=== PATIENT | female | born 1955 | race Caucasian/White ===

== ENCOUNTER 2016-04-24 09:12 | Emergency (ER) | payer OTHER ==
[~2016-04-24] VITALS: Ht 167.6 cm; Wt 63.5 kg
[~2016-04-24 09:12] MED LIST: ABIL5TAB6 PO; AMLO5 PO; DOCU1CAP39 PO; DULO20 PO; HYDR2.5%T PR; LEVO50TA4 PO; OMEP10CA37 PO
[2016-04-24 09:23] VITALS: BP 143/96; PULSE 123; RESP 18; TEMP 99.4; O2SAT 99
[2016-04-24 09:40] VITALS: RESP 16; O2SAT 99
[2016-04-24] MEDS ORDERED: SODIUM CHLOR 0.9% 1000 ML INJ 1,000 ML IV ONE (09:45)
[2016-04-24] MEDS ORDERED: SODIUM CHLORIDE 0.9% FLUSH 5 ML FLUSH IVF PRN (09:45)
[2016-04-24] MEDS ORDERED: LEVO125T4 PO (09:51)
[2016-04-24] MEDS ORDERED: AMLO5TAB2 PO (09:51)
[2016-04-24] MEDS ORDERED: DULO20 PO (09:51)
[2016-04-24] MEDS ORDERED: PRIL20CA9 PO (09:51)
[2016-04-24] MEDS ORDERED: ABIL5TAB6 PO (09:51)
--- NOTE | 2016-04-24 09:59 | RADHPO ---
EXAM DATE/TIME: 04/24/2016 09:46 [place] COMPARISON: No previous studies available for comparison. INDICATIONS : High heart rate. MEDICAL HISTORY : Hypertension. SURGICAL HISTORY : None. ENCOUNTER: Initial ACUITY: 1 day PAIN SCORE: 0/10 LOCATION: Bilateral chest FINDINGS: A single view of the chest demonstrates the lungs to be symmetrically aerated without evidence of mas s, infiltrate or effusion. The cardiomediastinal contours are unremarkable. Osseous structures are intact. CONCLUSION: No acute disease. Cody Jean MD on April 24, 2016 at 9:54 Board Certified Radiologist. This report was verified electronically.
[2016-04-24 10:21] LABS: AUTOMATED NEUTROPHIL # 3.5 TH/MM3 (1.8-7.7); BASOPHIL % 0.4 % (0.0-2.0); EOSINOPHIL % 0.8 % (0.0-4.0); HEMATOCRIT 43.1 % (35.0-46.0); HEMO FLAGS DIFF FINAL; LYMPH % 11.2 % (9.0-44.0); LYMPHOCYTE # 0.5 TH/MM3 (1.0-4.8); MEAN CELL VOLUME 93.1 FL (80.0-100.0); MEAN CORPUSCULAR HEMOGLOBIN 31.4 PG (27.0-34.0); MEAN CORPUSCULAR HGB CONC 33.7 % (32.0-36.0); MONO % 12.3 % (0.0-8.0); NEUT % 75.3 % (16.0-70.0); PLATELET COUNT 253 TH/MM3 (150-450); RED BLOOD COUNT 4.62 MIL/MM3 (4.00-5.30); RED CELL DISTRIBUTION WIDTH 11.8 % (11.6-17.2); WHITE BLOOD COUNT 4.6 TH/MM3 (4.0-11.0)
[2016-04-24 10:30] LABS: CHLORIDE 99 MEQ/L (98-107); POTASSIUM 3.9 MEQ/L (3.5-5.1); SODIUM (NA) 139 MEQ/L (136-145)
--- NOTE | 2016-04-24 10:31 | PD ---
HPI Chief Complaint: GI Complaint Time Seen by Provider: 09:30 Travel History International Travel<30 days: No Contact w/Intl Traveler<30days: No Traveled to known affect area: No History of Present Illness HPI Patient 60-year-old female presents emergency department for evaluation of tachycardia. Patient states she's been having cough and congestive symptoms she started azithromycin pack and is also been having some diarrhea. She went to an urgent care facility today found her heart rate was elevated and the recommended that she come to the emergency department for IV rehydration. Patient does have plans to go on a vacation in the next week and she was told urgent care that if she didn't come over to get hydrated she may not end up going on a cruise. She denies any fever bowel pain chest pain shortness breath. Her URI symptoms consistent with dry cough with runny nose. States the diarrhea is nonbloody and non-melanous. Patient also states that she's recently had her thyroid medication adjusted (a few days ago). PFSH Past Medical History Depression: Yes Cardiovascular Problems: Yes (HTN) GERD: Yes Hypertension: Yes Thyroid Disease: Yes (hypo) ?: Not Social History Alcohol Use: Yes (3 beers daily; 3 beers 07/31/15) Tobacco Use: No (as teenager) Substance Use: No Allergies-Medications (Allergen,Severity, Reaction): Coded Allergies: No Known Allergies (Unverified , 04/24/16) Reported Meds & Prescriptions Reported Meds & Active Scripts Active Reported Levothyroxine (Levothyroxine Sodium) 125 Mcg Tab 0.5 Tab PO DAILY Cymbalta DR (Duloxetine HCl) 20 Mg Capdr Unknown Dose PO DAILY Abilify (Aripiprazole) 5 Mg Tab 5 Mg PO DAILY Amlodipine (Amlodipine Besylate) 5 Mg Tab 5 Mg PO DAILY Prilosec (Omeprazole) 20 Mg Cap 20 Mg PO DAILY Review of Systems Except as stated in HPI: all other systems reviewed are Neg Physical Exam Narrative GENERAL: WD, WN in nad. Tanned. SKIN: Warm and dry. HEAD: Atraumatic. Normocephalic. EYES: Pupils equal and round. No scleral icterus. No injection or drainage. ENT: No nasal bleeding or discharge. Mucous membranes pink and dry. NECK: Trachea midline. No JVD. CARDIOVASCULAR: Tachycardic with regular rhythm. 2+ bilaterally equal pulses in all 4 ext. RESPIRATORY: No accessory muscle use. Clear to auscultation. Breath sounds equal bilaterally. GASTROINTESTINAL: Abdomen soft, non-tender, nondistended. Hepatic and splenic margins not palpable. MUSCULOSKELETAL: Extremities without clubbing, cyanosis, or edema. No obvious deformities. NEUROLOGICAL: Awake and alert. No obvious cranial nerve deficits. Motor grossly within normal limits. Five out of 5 muscle strength in the arms and legs. Normal speech. PSYCHIATRIC: Appropriate mood and affect; insight and judgment normal. Data Data Last Documented VS Vital Signs Date Time Temp Pulse Resp B/P Pulse Ox O2 Delivery O2 Flow Rate FiO2 04/24/16 11:27 99 16 147/88 97 Room Air 04/24/16 09:23 99.4 Orders Electrocardiogram (04/24/16 09:36) Basic Metabolic Panel (Bmp) (04/24/16 09:36) Ckmb (Isoenzyme) Profile (04/24/16 09:36) Complete Blood Count With Diff (04/24/16 09:36) Magnesium (Mg) (04/24/16 09:36) Prothrombin Time / Inr (Pt) (04/24/16 09:36) Act Partial Throm Time (Ptt) (04/24/16 09:36) Troponin I (04/24/16 09:36) Chest, Single Ap (04/24/16 09:36) Ecg Monitoring (04/24/16 09:36) Bilateral Bp Monitoring (04/24/16 09:36) Iv Access Insert/Monitor (04/24/16 09:36) Oximetry (04/24/16 09:36) Oxygen Administration (04/24/16 09:36) Sodium Chloride 0.9% Flush (Ns Flush) (04/24/16 09:45) Sodium Chlor 0.9% 1000 Ml Inj (Ns 1000 M (04/24/16 09:45) Thyroid Stimulating Hormone (04/24/16 09:58) Free T3 (04/24/16 09:58) Free Thyroxine (T4) (04/24/16 09:58) Labs Laboratory Tests Test 04/24/16 10:05 White Blood Count 4.6 TH/MM3 Red Blood Count 4.62 MIL/MM3 Hemoglobin 14.5 GM/DL Hematocrit 43.1 % Mean Corpuscular Volume 93.1 FL Mean Corpuscular Hemoglobin 31.4 PG Mean Corpuscular Hemoglobin 33.7 % Concent Red Cell Distribution Width 11.8 % Platelet Count 253 TH/MM3 Mean Platelet Volume 8.2 FL Neutrophils (%) (Auto) 75.3 % Lymphocytes (%) (Auto) 11.2 % Monocytes (%) (Auto) 12.3 % Eosinophils (%) (Auto) 0.8 % Basophils (%) (Auto) 0.4 % Neutrophils # (Auto) 3.5 TH/MM3 Lymphocytes # (Auto) 0.5 TH/MM3 Monocytes # (Auto) 0.6 TH/MM3 Eosinophils # (Auto) 0.0 TH/MM3 Basophils # (Auto) 0.0 TH/MM3 CBC Comment DIFF FINAL Differential Comment Prothrombin Time 10.2 SEC Prothromb Time International 0.9 RATIO Ratio Activated Partial 25.3 SEC Thromboplast Time Sodium Level 139 MEQ/L Potassium Level 3.9 MEQ/L Chloride Level 99 MEQ/L Carbon Dioxide Level 30.3 MEQ/L Anion Gap 10 MEQ/L Blood Urea Nitrogen 10 MG/DL Creatinine 0.92 MG/DL Estimat Glomerular Filtration 62 ML/MIN Rate Random Glucose 97 MG/DL Calcium Level 10.0 MG/DL Magnesium Level 1.8 MG/DL Total Creatine Kinase 55 U/L Troponin I LESS THAN 0.02 NG/ML Free Thyroxine 1.11 NG/DL Free Triiodothyronine (T3) 2.71 PG/ML pg/dL Thyroid Stimulating Hormone 0.192 uIU/ML 3rd Gen [facility] Medical Decision Making Medical Screen Exam Complete: Yes Emergency Medical Condition: Yes Interpretation(s) EKG shows sinus tachycardia rate of 114, intervals otherwise within normal limits, normal axis and normal R-wave progression. No concerning ST T changes. This normal EKG except for rate. Differential Diagnosis Dehydration, hyperthyroid, thyroid storm is clinically excluded, flu, pna. Narrative Course Patient appears well, clinically dehydrated. Consider diarrhea and patient unsure if started before or after antibiotic therapy for URI. Thyroid levels are high but she just had her dose adjusted and will hold further adjustment at this time. discussed need for follow up with prescriber. She is given NS bolus and HR is improving. Now <100. DIscussed with her that she should continue PO hydration at home. Ok to finish anticiotics until gone. DIscussed return to ED criteria and follow up with PCP. Diagnosis Primary Impression: Dehydration Additional Impression: Diarrhea Qualified Code: R19.7 - Diarrhea, unspecified type Disposition: 01 DISCHARGE HOME Condition: Stable Marcelo Robles MD Apr 24, 2016 10:31
[2016-04-24 10:33] LABS: ANION GAP 10 MEQ/L (5-15); BICARBONATE 30.3 MEQ/L (21.0-32.0); BLOOD UREA NITROGEN 10 MG/DL (7-18); MAGNESIUM 1.8 MG/DL (1.5-2.5)
[2016-04-24 10:34] LABS: APTT (PATIENT) 25.3 SEC (24.3-30.1); INTERNATIONAL NORMALIZED RATIO 0.9 RATIO; PROTHROMBIN TIME - PATIENT 10.2 SEC (9.8-11.6)
[2016-04-24 10:36] LABS: GLOMERULAR FILTRATION RATE 62 ML/MIN (>89)
[2016-04-24 10:59] LABS: CREATINE KINASE 55 U/L (26-192)
[2016-04-24 11:27] VITALS: BP 147/88; PULSE 99; RESP 16; O2SAT 97
[2016-04-24 12:41] LABS: FREE T3 2.71 PG/ML (2.18-3.98); FREE T4 1.11 NG/DL (0.76-1.46)
--- NOTE | 2016-04-25 20:33 | EKG ---
Date Performed: 04/24/2016 Time Performed: 09:57:38 PTAGE: 60 years EKG: Sinus tachycardia Normal ECG except for rate NO PREVIOUS TRACING DOCTOR: Tejas Enciso Interpretating Date/Time 04/25/2016 20:33:20
== END 2016-04-24 12:13 | disposition home or self-care (01) ==
LOC: PHED 09:12
DX: E86.0 Dehydration (principal); R19.7 Diarrhea, unspecified; R00.0 Tachycardia, unspecified; I10 Essential (primary) hypertension; E07.9 Disorder of thyroid, unspecified; K21.9 Gastro-esophageal reflux disease without esophagitis; Z87.891 Personal history of nicotine dependence
CPT/HCPCS: 71010; 80048; 82550; 83735; 84439; 84443; 84481; 84484; 85025; 85610; 85730; 93005; 96360; 99284; J7030

== ENCOUNTER → 2017-07-30 | Day surgery (SDC) | payer BC ==
[~2017-07-30] VITALS: Ht 165.1 cm; Wt 61.3 kg
[~2017-07-30] MED LIST changes: -ABIL5TAB6 PO; +ACETAMINOPHEN 1000 MG/100 ML 100 ML IV ONE; +ACETAMINOPHEN/HYDROcodone 325 MG/5 MG TAB PO PRN; +AMLO10TA2 PO; -AMLO5 PO; +ARIP1TAB16 PO; +BETAMETHASONE SOD PHOS/ACETATE SUSP 30 MG/5 ML VIAL ONE; +BUPIVACAINE/EPINEPHRINE 0.5% PF 10 ML VIAL ONE; +CHLORHEXIDINE GLUCONATE 2 % 1 PACK (2 CLOTHS) TOPICAL PRN; +CHLORHEXIDINE GLUCONATE 4% SOLN 120 ML BTL TOPICAL SCH; +DEXAMETHASONE SOD PHOS 4 MG/ML VIAL IV ONE; +DO NOT ADM ANY ANTICOAGULANT DRUGS PRN; -DOCU1CAP39 PO; +DULO1CAP3 PO; -DULO20 PO; +EPINEPHrine HCL (1:1000) 1 MG/ML VIAL IV ONE; +GELATIN 12 MM/7 MM FOAM ONE; +GELFOAM SIZE 100 ONE; +GENTAMICIN SULFATE 80 MG/2 ML VIAL ONE; +GLYCOPYRROLATE 1 MG/5 ML SYRINGE IV PUSH ONE; +HYDR-3516 PO; -HYDR2.5%T PR; +KETAMINE HCL 50 MG/5 ML SYRINGE ONE; +KETOROLAC TROMETHAMINE 30 MG/ML (IVP) VIAL IV PUSH ONE; +LACTATED RINGER'S 1000 ML IV PRN; +LEVO125T4 PO; -LEVO50TA4 PO; +LIDOCAINE HCL 1% PF 5 ML SYRINGE OTHER ONE; +LIOT5TAB3 PO; +LORA0.5T PO; +METOPROLOL TARTRATE 25 MG TAB PO PRN; +MIDAZOLAM HCL 2 MG/2 ML VIAL ONE; +MORPHINE SULFATE 4 MG/ML INJ IV PUSH PRN; +NEOSTIGMINE 5 MG/5 ML SYRINGE IV PUSH ONE; -OMEP10CA37 PO; +ONDANSETRON HCL 4 MG/2 ML VIAL IV PUSH ONE; +ONDANSETRON ODT 4 MG TAB PO PRN; +PANT40TA3 PO; +PHENYLEPH/NS 1000 MCG/10 ML SYR IV ONE; +POVIDONE IODINE 5% (ANTISEPSIS KIT) 4 APPLICATIONS EACH NARE PRN; +PROPOFOL 200 MG/20 ML AMP IV ONE; +Post-op Orders (for Pharmacy) XX ONE; +ROCURONIUM INJ 50 MG/5 ML SYRINGE IV PUSH ONE; +SODIUM CHLORID 0.9% 500 ML IV PRN; +SODIUM CHLORIDE 0.9% FLUSH 10 ML FLUSH IV FLUSH PRN; +SODIUM CHLORIDE 0.9% FLUSH 10 ML FLUSH IV FLUSH SCH; +THROMBIN (TOPICAL) 5,000 UNIT VIAL ONE; +ceFAZolin 2 GM PREMIX 50 ML IV SCH; +ePHEDrine/NS 25 MG/5 ML SYRINGE IV ONE
[2017-07-30 08:48] LABS: BICARBONATE 27.6 MEQ/L (21.0-32.0); CALCIUM 9.6 MG/DL (8.5-10.1); CREATININE 0.74 MG/DL (0.50-1.00)
--- NOTE | 2017-07-30 13:13 | PD.OP ---
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 Patient was found to have right lateral recess L4-5 stenosis and moderate central stenosis. Patient failed nonoperative management including medications, activity modification, physical therapy, and epidural injections without significant improvement in her symptoms. Option of surgical intervention in the form of a right hemilaminectomy L4-5 with possible discectomy was discussed with the patient. Risks of surgery including but not limited to: Infection, CSF leak, persistent or worsening symptoms, neurologic injury including weakness and/or paralysis, adjacent segment disease, future instability, possible need for further surgery, recurrent disc herniation, and other unforeseen complications were all discussed with the patient. At this time she wished to proceed with the above-mentioned procedure. Description of procedure: The patient was brought back to the operating room. Gen. anesthesia then ensued. The patient was then placed prone on the operating room table with all bony prominences well-padded. The patient was prepped and draped in standard sterile fashion. A timeout was performed to identify the correct patient, location, and procedure to be performed. Preoperative antibiotics were given prior to incision. The level was identified with fluoroscopy, L4-5, and a central midline incision was made through the skin and subcutaneous tissue. A small incision was made into the fascia just to the right of the spinous process. The retractor dilators were placed through the fascia and down to the lamina and verified to be in appropriate position on both AP and lateral radiographs. Subsequent dilators were utilized and final retractor was then placed and again verified to be of over the L4-5 disc space on the right side. The laminas and medial aspect of the L4-5 facet were identified. A right hemilaminectomy was performed with the use of a high-speed bur and Leksell rongeurs. Once the dorsal lamina was thinned, Kerrisons and Leksell's were utilized to remove the remaining lamina and ligamentum. The right hemilaminectomy was then widened, including partial facetectomy, with the use of Kerrisons and curettes to allow identification of the exiting L4 nerve root and traversing L5 nerve root. A nerve root retractor was then placed to mobilize the thecal sac towards the left to allow identification of the L4-5 disc. An annulotomy was performed and discectomy carried out with the use of pituitaries and curettes. At this time, the thecal sac and nerve roots appeared free of compression. The disc space was irrigated thoroughly to ensure there were no loose fragments. Hemostasis was achieved with bipolar electrocautery and hemostatic agents. A small piece of Gelfoam soaked with Celestone was then placed over the nerve roots. The wound was thoroughly irrigated. The fascia was then closed with deep 0 Vicryl suture. The subcutaneous tissue closed with 2-0 Vicryl suture and the skin closed with nylon. A sterile dressing was then applied. Patient was then placed back onto stretcher and awoken from general anesthesia without complication. It should be noted the patient remained hemodynamically stable throughout the procedure. Disposition: Patient will be mobilized today. Patient was instructed to avoid bending, lifting greater than 10 pounds, and twisting. Patient will be discharged from the postoperative area. Lillian Ramírez MD Jul 30, 2017 13:13
--- NOTE | 2017-07-30 14:16 | RADRPT ---
EXAM DATE: 07/30/2017 2:13 PM EDT AGE/SEX: 61 years / Female INDICATIONS: L4-5 laminectomy. Level localization. CLINICAL DATA: This is the patient's initial encounter. Patient reports that signs and symptoms have been present for 1 day and indicates a pain score of Nonresponsive. MEDICAL/SURGICAL HISTORY: Non-responsive. Non-responsive. COMPARISON: No prior exams available for comparison. FINDINGS: Several lateral views of the lumbar spine were performed including a single AP view. Localization dev ices been placed posteriorly at the second from the bottom disc space level which appears to be L4-5. CONCLUSION: Localization of L4-5. Electronically signed by: Jose Espinosa MD 07/30/2017 2:15 PM EDT
[2017-07-30 14:54] VITALS: BP 120/76; PULSE 65; RESP 18; TEMP 98; O2SAT 100
== END | disposition home or self-care (01) ==
LOC: HSDC 07:09
PROVIDERS: ATTEND Orthopaedic Surgery Orthopaedic Surgery of the Spine
DX: M48.061 Spinal stenosis, lumbar region without neurogenic claudication (principal); M54.16 Radiculopathy, lumbar region; I10 Essential (primary) hypertension
CPT/HCPCS: 00630; 63030; 72100; 76000; 80048; J0131; J0171; J0690; J0702; J1100; J1580; J1885; J2250; J2370; J2405; J2710; J3010; J7120